=== PATIENT | female | born 1985 | race Two or more races ===

== ENCOUNTER 2024-07-15 10:14 | Outpatient (REF) | payer MEDICAID, SELFPAY ==
--- OUTSIDE RECORDS SUMMARY | 2024-07-15 11:17 | XMS_ITS | Encounter Summary ---
Author Organization [employer] Address [address] [facility] [place] [address] Care Team Providers Care Gas Pipe Layer Name Role Phone Claudia Antunez MD Primary Care Provider + Encounter Details Date Type Department Care Team (Latest Contact Info) Description 07/15/2024 Travel Social History Tobacco Use Types Packs/Day Years Used Date Smoking Tobacco: Never Smokeless Tobacco: Never Alcohol Use Standard Drinks/Week Comments Never 0 (1 standard drink = 0.6 oz pur e alcohol) Housing Stability Answer Date Recorded What is your housing situation today? I have concha hurley 07/15/[address] you li ve. Do you have problems with any of the following? None of the above 07/15/2024 Food Insecurity Answer Date Recorded Within the past 12 months, y ou worried that your food would run out before you got money to buy more: Never True 07/15/2024 Within the past 12 months,th e food you bought just didn't last and you didn't have enough money to get more: Never True Transportation Answer Date Recorded In the past 12 months, has l ack of transportation kept you from medical appts, meetings, work or from getting things needed for daily living? No 07/15/2024 Utilities Answer Date Recorded In the past 12 months, has t he [employer], gas, oil or water [employer] threatened to shut off services in your home? No 07/15/2024 Internet Access Answer Date Recorded Internet Access Q1 No 07/15/2024 Internet Access Q2 I do not want or need it 07/01 Comments Unknown Sex and Gender Information Value Date Recorded Sex Assigned at Female 11/14/2023 4:49 PM EDT Legal Sex Female 4:47 PM EDT Gender Identity Female 11/14/2023 4:49 PM EDT Sexual Orientation Don't know 07/14/2024 8: 49 AM EDT documented as of this encounter Plan of Treatment Upcoming Encounters Date Type Department Care Team (Late st Contact Info) Description 10/29/2024 9:00 AM EDT Office Visit [facility] [address] [place] [address] Claudia Anutnez MD [address] [place] [address] documented as of this encounter Visit Diagnoses Not on filedocumented in this encounter Care Teams Gas Pipe Layer Relationship Specialty Start Date End Date Claudia Antunez MD [address] [place] [id number] PCP - General Internal Medicine 07/15/24 documented as of this encounter
--- OUTSIDE RECORDS SUMMARY | 2024-07-15 11:17 | XMS_ITS | Clinical Summary ---
Author Organization [employer] Address [address] [place] [address] 7t [place] [address] Care Team Providers Care Core Drill Operator Name Role Phone Claudia Antunez MD Primary Care Provider + Allergies Active Allergy Reactions Criticality Noted Date Comments Metronidazole 01/27/2024 Medications SUMAtriptan (Imitrex) 100 MG tablet Take 1 tablet (100 mg) by mouth 1 (one) time if needed for migraine. 9 tablet 1 5 07/17/19 Active budesonide-form oterol (Symbicort) 160-4.5 MCG/ACT inhaler Inhale 2 puffs in the morning and at bedtime. Rinse mouth with water after use to reduce aftertaste and incidence of candidiasis. Do not swallow. 1 each 11 5 07/16/19 Active topiramate (Topamax) 25 MG tablet Take 1 tablet (25 mg) by mouth 2 times daily. 60 tablet 3 5 07/16/19 Active sertraline (Zoloft) 25 MG tablet Take 1 tablet (25 mg) by mouth Once per day. 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, not intractable (Primary Dx); Mild persistent asthma without complication; PTSD (post-traumatic stress disorder); PCOS (polycystic ovarian syndrome); Chronic bilateral low back pain with left-sided sciatica 07/15/2024 Travel 07/07/2024 Patient Outreach [facility] [address] [place] [address] Claudia Antunez MD Pre-visit Planning ((Unable to reach for PVP screening and or LVM due to diffilculty with phone connection.) from Last 3 Months Social History Tobacco Use Types Packs/Day Years Used Date Smoking Tobacco: Never Smokeless Tobacco: Never Tobacco Cessation:Counseling Given: Not Answered Alcohol Use Standard Drinks/Week Comments Never 0 [...] the past 12 months, has t he electric, gas, oil or water company threatened to shut off services in your [...] Don't know 07/14/2024 8: 49 AM EDT Last Filed Vital Signs Vital Sign Reading Time Taken Comments Blood Pressure 123/77 07/15/2024 9:05 AM EDT Pulse 73 07/15/2024 9:05 AM EDT Temperature 36.2 ??C (97.2 ??F) 07/15/2024 9:05 AM ED T Respiratory Rate 16 07/15/2024 9:05 AM EDT Oxygen Saturation 100% 07/15/2024 9:05 AM EDT Inhaled Oxygen Concentration - - Weight 75 kg (165 lb 4 oz) 07/15/2024 9:05 AM ED T Height 158 cm (5' 2.21 ) 07/15/2024 9:05 AM EDT Body Mass Index 30.03 07/15/2024 9:05 AM EDT Plan of Treatment Upcoming Encounters Date Type Department Care Team (Late st Contact Info) Description 10/29/2024 9:00 AM EDT Office Visit [facility] [address] [place] [address] Claudia Antunez MD [address] [place], [place] [phone] Health Maintenance Due Date Last Done Comments Depression Screening 1987 HIV Screening 1987 Lipid Panel 1987 Alcohol/Substance Use Screening 1999 Family Planning (PISQ) 06/06/2002 Hepatitis C Screening 06/06/2005 DTaP/Tdap/Td Vaccines (1 - Tdap) 06/06/2006 Hepatitis B Vaccines (1 of 3 - 19+ 3-dose series) 06/06/2006 Pneumococcal Vaccine: Pediat rics (0 to 5 Years) and At-Risk Patients (6 to 49) Years) (1 of 2 - PCV) 06/06/2006 Pap Smear 06/06/2008 Cervical Cancer Screening 06/06/2017 HPV/Cotest 06/06/2017 COVID-19 Vaccine ( - 2023-2 5 season) 2023 Influenza Vaccine (#1) 2023 SDOH Screening 07/15/2025 07/15/2024 Tobacco Screening 07/15/2025 07/15/2024 Zoster Vaccines (1 of 2) 06/06/2037 RSV Patients and Pa tients Aged 60 years or older (1 - 1-dose 75+ series) 06/06/2062 HIB Vaccines Aged Out No longer eligi ble based on patient's age to complete this topic HPV Vaccines Aged Out No longer eligi ble based on patient's age to complete this topic Hepatitis A Vaccines Aged Out No long er eligible based on patient's age to complete this topic IPV Vaccines Aged Out No longer eligi ble based on patient's age to complete this topic Meningococcal B Vaccine Aged Out No l onger eligible based on patient's age to complete this topic Meningococcal Vaccine Aged Out No wayne rocio eligible based on patient's age to complete this topic RSV under 20 months Aged Out No longe r eligible based on patient's age to complete this topic Rotavirus Vaccines Aged Out No longer eligible based on patient's age to complete this topic Insurance [facility] F[facility] Care Teams Core Drill Operator Relationship Specialty Start Date End Date Claudia Antunez MD [address] [place] [id number] PCP - General Internal Medicine 07/15/24
--- OUTSIDE RECORDS SUMMARY | 2024-07-15 11:17 | XMS_ITS | Clinical Summary ---
Author Organization [address] [place] [address] [place] [phone] Phone Care Team Providers Care Drain Technician Name Role Phone SheelaAmna TAJ Primary Care Provider [phone] Allergies Active Allergy Reactions Criticality Noted Date Comments Metronidazole 01/27/2024 Medications No known medications Active Problems Problem Noted Date Diagnosed Date Encounter for gynecological examination with abnormal finding 01/27/2024 Cervical cancer screening 01/27/2024 Female infertility 01/27/2024 Class 1 obesity due to exces s calories without serious comorbidity with body mass index (BMI) of 30.0 to 30.9 in adult 01/27/2024 Irregular menstrual bleeding 01/27/2024 Surgical History Surgery Date Site/Laterality Comments SECTION, LOW TRANSVERSE Medical History Medical History Date Comments Polycystic ovary syndrome Social History Tobacco Use Types Packs/Day Years Used Date Smoking Tobacco: Never Smokeless Tobacco: Never Tobacco Cessation:Counseling Given: No Alcohol Use Standard Drinks/Week Comments Not Currently 0 (1 standard drink = 0.6 oz pur e alcohol) Comments Unknown Sex and Gender Information Value Date Recorded Sex Assigned at Female 01/16/2024 10:00 AM EST Legal Sex Female 9:58 AM EST Gender Identity Female 01/16/2024 10:00 AM EST Sexual Orientation Straight 01/16/2024 10 :00 AM EST Obstetrics History Para Term AB IAB SAB Ectopic Multiple Livin g Live Births 1 1 1 1 1 Date Outcome GA Total Labor Labor/2nd/3rd Weight Sex Type Anes PTL Jennifer A1 A5 Name Clin 2016 Term F CS-LT ranv Living Last Filed Vital Signs Vital Sign Reading Time Taken Comments Blood Pressure 108/76 01/27/2024 7:09 AM EST Pulse - - Temperature - - Respiratory Rate - - Oxygen Saturation - - Inhaled Oxygen Concentration - - Weight 74.8 kg (165 lb) 01/27/2024 7:09 AM EST Height 157.5 cm (5' 2 ) 01/27/2024 7:09 AM EST Body Mass Index 30.18 01/27/2024 7:09 AM EST Plan of Treatment Health Maintenance Due Date Last Done Comments DTaP,Tdap,and Td Vaccines (1 - Tdap) 06/06/2006 Hepatitis B Vaccines (1 of 3 - 19+ 3-dose series) 06/06/2006 COVID-19 Vaccine ( - 2023-2 5 season) 2023 Cholesterol Screening (Lipid Panel) 01/16/2024 Depression Screening 01/16/2024 HIV Screening 01/16/2024 Hepatitis C Screening 01/16/2024 Social Influencers of Health Screening 01/16/2024 Influenza Vaccine (Season Ended) 2024 Cervical Cancer Screening: HPV 01/26/2029 01/27/2024 HIB Vaccines Aged Out No longer eligi [...] on patient's age to complete this topic MMR Vaccines Aged Out No longer eligi ble based on patient's age to complete this topic Meningococcal ACWY Vaccine Aged Out N o longer eligible based on patient's age to complete this topic Meningococcal B Vaccine Aged Out No l onger eligible based on patient's age to complete this topic Pneumococcal Vaccine: Pediat rics (0 to 5 Years) and At-Risk Patients (6 to 64 Years) Aged Out No longer eligi ble based on patient's age to complete this topic RSV Immunization Patients Un ghazal 20 months Aged Out No longer eligible b ased on patient's age to complete this topic Varicella Vaccines Aged Out No longer eligible based on patient's age to complete this topic Procedures Procedure Name Priority Date/Time Associated Diagnosis Comments HPV HIGH RISK PCR Routine 01/27/2024 8:1 1 AM EST Cervical cancer screening from Last 3 Months or Most Recently Relevant to Health Maintenance Results * HPV high risk molecular study (01/27/2024 8:11 AM EST) HPV Negative Negative LAB MOLECULAR DIAGNOSTICS METHOD 02/04/2024 4:38 AM EST [facility] Brushing/Spatula Cervix uteri structure / Unknown 01/27/2024 8:11 AM EST 02/03/2024 10:10 AM EST Amna Coker NP LAB MOLECULAR DIAGNOSTICS ORDERA BLES Final Result [facility] [address] [place] [address], [place] [phone] from Last 3 Months or Most Recently Relevant to Health Maintenance [place] [address] [place] [address] Care Teams Drain Technician Relationship Specialty Start Date End Date Amna Coker NP David Cueto [facility] [address] [place] [address] PCP - General Obstetrics and Gynecology 03/02/24
--- OUTSIDE RECORDS SUMMARY | 2024-07-15 11:17 | XMS_ITS | Clinical Summary ---
Author Organization [facility] Address [address] [place] [address] Care Team Providers Care Rolled Ham Lacer Name Role Phone Yesica Allison PA-C Primary Care Provider Source Comments PLEASE NOTE, if this patient is a minor, it may be UNLAWFUL to discuss sensitive information that is contained in these records (such as FAMILY PLANNING, MENTAL HEALTH or SUBSTANCE ABUSE) with the minor patient's parent or other person without the patient's specific authorization.[facility] Social History Tobacco Use Types Packs/Day Years Used Date Smoking Tobacco: Never Assessed Social Connections Answer Date Recorded Connectedness 0 11/14/2023 Financial Resource Strain Answer Date R ecorded Financial Resource Strain 0 2023 Stress Answer Date Recorded Stress 0 11/14/2023 Physical Activity Answer Date Recorded Physical Activity 0 11/14/2023 Food Insecurity Answer Date Recorded Food 0 11/28/2023 Transportation Needs Answer Date Record ed Transportation 0 11/14/2023 Housing Stability Answer Date Recorded Housing 0 11/14/2023 Safety and Environment Answer Date Indio rded Safety 0 11/14/2023 Utilities Answer Date Recorded Utilities 0 11/14/2023 Employment Answer Date Recorded Stress 0 11/14/2023 Comments Unknown Sex and Gender Information Value Date Recorded Sex Assigned at Female 11/14/2023 9:08 AM PDT Legal Sex Female 9:07 AM PDT Gender Identity Female 11/14/2023 9:08 AM PDT Sexual Orientation Straight 11/14/2023 9: 08 AM PDT Plan of Treatment Upcoming Encounters Date Type Department Care Team (Late st Contact Info) Description 07/29/2024 9:20 AM EDT Office Visit [facility] [address] [place] [phone] Linette Mcfarlane PA [address] [place], [place] [phone] 09/06/2024 9:00 AM EDT Office Visit [facility] [address] [place] [phone] EvelyneRuth Ann smith [address] [place] [address] Health Maintenance Due Date Last Done Comments Anxiety Screening 1987 Diabetes Screening 1987 HPV Screening 1987 Hepatitis C Screening 1987 Pap + HPV 1987 Tobacco Screening 1987 HIV Screening 06/06/2002 Relationship Safety Screening/Counseling 06/06/2002 Hypertension Screening (#1) 06/06/2005 Imm-DTaP/Tdap/Td (1 - Tdap) 06/06/2006 Imm-Hepatitis B (1 of 3 - 19+ 3-dose series) 7 Cervical Cancer Screening 06/06/2008 Pap Smear 06/06/2008 [id number] () 11/02/2023 Imm-Influenza (#1) 2023 Alcohol and Drug Screen 03/03/2024 Depression Annual Screen 03/03/2024 Cervical Ablation/Cold-Knife Conization Discontinued Cervical Cryotherapy Discontinued Colposcopy Discontinued Endometrial Biopsy Discontinued Excision/Leep Discontinued HPV Genotyping Discontinued Vaginal Pap Discontinued Vulvoscopy Discontinued Insurance [place] MEDICAID Care Teams Rolled Ham Lacer Relationship Specialty Start Date End Date Yesica Allison PA-C [address] [place] [address] PCP - General Primary Care 11/14/23
--- OUTSIDE RECORDS SUMMARY | 2024-07-15 11:17 | XMS_ITS | Encounter Summary ---
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, not intractable Procedures MR Brain w/o Contrast Claudia Antunez MD [address] [place] [address] Phone: tel: fax: [address] Phone: tel: fax: Referral ID Status Reason Start Date Expiration Date V isits Requested Visits Authorized [id number] Authorized 07/15/2024 07/15/2025 1 1 Reason for Visit * Reason Comments New patient Encounter Details Date Type Department Care Team (Late st Contact Info) Description 07/15/2024 9:15 AM EDT Office Visit [facility] [address] [place] [phone] Claudia Antunez MD [address] [place] [phone] 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, not intractable (Primary Dx); Mild persistent asthma without complication; PTSD (post-traumatic stress disorder); PCOS (polycystic ovarian syndrome); Chronic bilateral low back pain with left-sided sciatica Social History Tobacco Use Types Packs/Day Years [...] AM EDT documented as of this encounter Last Filed Vital Signs Vital Sign Reading [...] Mass Index 30.03 07/15/2024 9:05 AM EDT documented in this encounter Plan of Treatment Upcoming Encounters Date Type Department Care Team (Late st Contact Info) Description 10/29/2024 9:00 AM EDT Office Visit [facility] [address] [place] [address] Claudia Antunez MD [address] [place], [place] [phone] Scheduled Orders Name Type Priority Associated Diagnoses Orde r Schedule Lipid Panel with Reflex to Direct LDL Lab Routine PCOS (polycystic ovarian syndrome) Expected: 07/15/2024 (Approximate), Expires: 07/15/2025 Syphilis Screen Lab Routine 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, not intractable Expected: 07/15/2024 (Approximate), Expires: 07/15/2025 TSH with Reflex to Free T4 Lab Routine 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, not intractable Expected: 07/15/2024 (Approximate), Expires: 07/15/2025 Vitamin D, 25-Hydroxy, Total, Immunoassay Lab Routine PCOS (polycystic ovarian syndrome) Expected: 07/15/2024 (Approximate), Expires: 07/15/2025 Hepatitis Panel, General Lab Routine 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, not intractable PCOS (polycystic ovarian syndrome) Expected: 07/15/2024 (Approximate), Expires: 07/15/2025 CBC auto differential Lab Routine 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, not intractable Expected: 07/15/2024 (Approximate), Expires: 07/15/2025 Comprehensive Metabolic Panel Lab Routine 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, not intractable Expected: 07/15/2024 (Approximate), Expires: 07/15/2025 MR Brain w/o Contrast Imaging Routine 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, not intractable Expected: 07/15/2024, Expires: 07/15/2025 documented as of this encounter Visit Diagnoses Diagnosis 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
[2024-07-15 11:44] LABS: MANUAL DIFF FLAG NO
[2024-07-15 11:46] LABS: Basophils Percent Auto 0.4 % (0-2); Eosinophils Absolute Auto 0.1 X10*3/uL (0.0-0.4); Eosinophils Percent Auto 0.6 % (0-4); Hematocrit 39.2 % (37.0-47.0); Hemoglobin 12.9 g/dl (12.0-16.0); Imm Gran Abs Auto 0.04 X10*3/uL (0.00-0.03); Imm Gran Pct Auto 0.4 % (0.0-0.4); Lymphocytes Absolute Auto 2.6 X10*3/uL (1.2-4.9); Lymphocytes Percent Auto 27.8 % (20-40); Mean Corpuscular HGB Conc 32.9 g/dl (31.0-35.0); Mean Platelet Volume 11.9 fL (9.4-12.3); Monocytes Absolute Auto 0.6 X10*3/uL (0.1-1.2); Monocytes Percent Auto 6.6 % (2-11); Neutrophils Percent Auto 64.2 % (45-73); Platelet Count 202 X10*3/uL (160-400); Red Blood Count 4.61 X10*6/uL (4.20-5.50); Red Cell Distribution Width 13.1 % (11.0-16.0); White Blood Count 9.3 X10*3/uL (4.8-10.8)
[2024-07-15 12:30] LABS: Alanine Aminotransferase 12 U/L (0-31); Albumin Level 4.1 g/dL (3.5-5.0); Alkaline Phosphatase 84 U/L (39-117); Anion Gap 12 (12-20); Aspartate Amino Transferase 21 U/L (5-31); Bilirubin Total 0.5 mg/dL (0.0-1.0); Blood Urea Nitrogen 12 mg/dL (9-16); Calcium 9.1 mg/dL (8.4-10.2); Carbon Dioxide 25 mmol/L (22-29); Chloride 108 mmol/L (96-108); Cholesterol 188 mg/dL (<200); Estimated Glomerular Filt Rate > 60; Glucose Random 94 mg/dL (60-115); HDL Cholesterol 48 mg/dL (>40); LDL Cholesterol Calculated 121 mg/dL (<100); Potassium 4.2 mmol/L (3.3-5.1); Sodium 141 mmol/L (135-145); Syphilis Screen Nonreactive (Nonreactive); Total Protein 7.6 g/dL (6.5-8.0); Triglycerides 97 mg/dL (<150)
[2024-07-15 12:35] LABS: TSH reflex Free T4 1.37 uIU/mL (0.32-4.0); Vitamin D 25-OH Total 23.6 ng/mL (>30)
[2024-07-15 12:37] LABS: HBS Num1 0.51 mIU/mL (0-7.99); HBc Num1 0.16 S/CO (0.00-0.79); HBsAGNum1 0.47 S/CO (0.00-0.99); Hepatitis A Antibody IgM 0.23 Index (0-0.79); Hepatitis B Core Antibody Nonreactive (Nonreactive); Hepatitis B Surface Antigen Negative (Negative); ~HepC Num1 0.12 S/CO (0.00-0.79); ~Hepatitis A Antibody IgM Nonreactive (Nonreactive); ~Hepatitis B Surface Antibody NONREACTIVE (Nonreactive); ~Hepatitis C Antibody Nonreactive (Nonreactive)
[2024-07-15 13:05] LABS: Reflex LDLD? No
[2024-07-16 15:31] LABS: HCG Quantitative < 2 mIU/mL
== END 2024-07-15 10:15 | disposition home or self-care (01) ==
LOC: HO.HHCL 10:14
PROVIDERS: Visit Provider Internal Medicine
DX: G43.509 Persistent migraine aura without cerebral infarction, not intractable, without status migrainosus (principal); E28.2 Polycystic ovarian syndrome
CPT/HCPCS: 36415; 80053; 80061; 82306; 84443; 84702; 85025; 86704; 86706; 86709; 86780; 86803; 87340

== ENCOUNTER 2024-07-25 10:40 | Outpatient (REF) | payer MEDICAID, OTHER, SELFPAY ==
--- NOTE | ~2024-07-25 | MR_ITS ---
CLINICAL HISTORY: recurrent headaches with neurological deficits MR of the brain without contrast Comparison: None Findings: No acute infarction, hemorrhage, mass-effect or herniation. No hydrocephalus. Signal intensity is within normal limits for patient's age. No extra-axial fluid collection or mass. In the sella there is a lesion in the midline measuring 6 x 6 mm which is hyperintense on T1 and T2 weighted images, FLAIR and does not demonstrate increased signal on the DWI images (series 6, 9, 7 in 12, image 11 ). Intact flow voids. Normal orbits. Mild mucosal thickening with fluid in the left maxillary sinus. Mucosal thickening and left anterior ethmoid air cells. Otherwise clear paranasal sinuses and mastoid air cells. Unremarkable osseous structures. 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 Cystic pituitary adenoma is considered less likely. A sella mass protocol study can be performed for further characterization. No posttraumatic findings. The brain parenchyma is normal in signal. Sinusitis. This document has been electronically signed by: Nicole Michael MD on 07/27/2024 13:38:27
--- OUTSIDE RECORDS SUMMARY | 2024-07-25 10:46 | XMS_ITS | Encounter Summary ---
Author Organization [employer] Address [address] [facility] [address]t [place] [address] Care Team Providers Care Cooky Machine Operator Name Role Phone Claudia Antunez MD Primary Care Provider + Reason for Visit * Reason Onset Date Comments Results 07/22/2024 Encounter Details Date Type Department Care Team ([facility] st Contact Info) Description 07/22/2024 Results Follow-Up [facility] [address] [place], [place] [phone] Claudia Antunez MD [address] [place] [address] Lipid Panel with Reflex to Direct LDL, Syphilis Screen, TSH with Reflex to Free T4, Additional followed-up results: 5 Social History Tobacco Use Types Packs/Day Years Used Date Smoking Tobacco: Never Smokeless Tobacco: Never Alcohol Use Standard Drinks/Week Comments Never 0 (1 standard drink = 0.6 oz pur e alcohol) Depression Answer Date Recorded Patient Health Questionnaire-9 Score 14 07/15/2024 Patient Health Questionnaire-9 Score 14 07/15/2024 Last PHQ-9: Questionnaire Data Not on file 0 07/15/2024 Housing Stability Answer Date Recorded What is [...] off services in your home? No 07/15/2024 Depression Answer Date Recorded Patient Health Questionnaire-2 Score 4 07/15/2024 Internet Access Answer Date Recorded Internet [...] AM EDT documented as of this encounter Miscellaneous Notes * Telephone Encounter - Elizabeth Owusu RN - 07/23/2024 10:46 AM EDT TC placed to patient [phone] via [employer] ([employer] #[id number]) in regards to below message. Patient verbalized understanding and reports she will p/u vitamin D supplement and work on dietary changes. Patient questioning why she was prescribed an anticonvulsant if she does not have seizures. Patient advised medication can also be used for migraines it is not only for patients with seizures.Patient verbalized understanding. Patient reports she spoke to the provider in regards to medication for gastric reflux however provider stated she would like to see the patients bloodwork results before prescribing medication for gastric reflux. RN informed patient, RN would send message to PCP nikki. Please advise if patient was to be prescribed medication for gastric reflux. Thank you! ----- Message from Claudia Antunez MD sent at 07/22/2024 4:22 PM EDT ----- Labs on 07/15/2024 show minimally elevated LDL (bad cholesterol and otherwise cholesterol is within normal limits, her vitamin D is a little low and the rest of exams are within normal limits. Please call patient and discussed with her regarding increase exercise and increase consumption of fruit, vegetables, fish and high fiber foods. Tell her that she should decrease consumption of highly saturated fats or trans fats. Also tell her to take vitamin D x 3 months and increase outdoor exercise daily for at least 15 minutes, I will follow-up with her at next appointment and discuss the rest of the labs. There is no need for medication for cholesterol at this time. ----- Message ----- From: Interface, Lab Results In Sent: 07/15/2024 11:48 AM EDT To: Claudia Antunez MD documented in this encounter Plan of Treatment Upcoming Encounters Date Type Department Care Team (Late st Contact Info) Description 10/29/2024 9:00 AM EDT Office Visit [facility] [address] [place] [phone] Claudia Antunez MD [address] [place] [phone] documented as of this encounter Visit Diagnoses Not on filedocumented in this encounter Additional Health Concerns Assessment Noted Time PHQ-9 Depression Total Score: 14 025 12:15 PM EDT documented as of this encounter Care Teams Cooky Machine Operator Relationship Specialty Start Date End Date Claudia Antunez MD [address] [place] [phone] PCP - General Internal Medicine 07/15/24 documented as of this encounter
== END 2024-07-25 10:41 | disposition home or self-care (01) ==
LOC: HO.MRI 10:40
PROVIDERS: PCP Internal Medicine; Visit Provider Internal Medicine
DX: G43.509 Persistent migraine aura without cerebral infarction, not intractable, without status migrainosus (principal)
CPT/HCPCS: 70551

== ENCOUNTER → 2024-07-25 10:47 | Outpatient (BNV) | payer SELFPAY | PROVIDERS: PCP Internal Medicine; Visit Provider Radiology Diagnostic Radiology | DX: J01.90 Acute sinusitis, unspecified (principal); Q18.0 Sinus, fistula and cyst of branchial cleft | CPT/HCPCS: 70551 ==

== ENCOUNTER 2024-10-27 08:06 | Outpatient (REF) | payer MEDICAID, OTHER, SELFPAY ==
--- NOTE | ~2024-10-27 | XR_ITS ---
EXAMINATION: XR LUMBAR SPINE 4 OR MORE VIEWS HISTORY: LBP sciatica COMPARISON: There are no prior studies for comparison. FINDINGS: AP, lateral, bilateral oblique, and coned down views of the lumbar spine are submitted. Osseous mineralization is normal. Five nonrib-bearing lumbar vertebral bodies are identified, maintaining normal height and alignment without evidence of fracture or spondylolisthesis. The intervertebral disc spaces are preserved. The posterior elements are intact. There is no spondylolysis. The visualized paraspinal soft tissues are unremarkable. XR/XR lumbar spine 4V min IMPRESSION: Unremarkable examination of the lumbar spine. Electronically signed by: Rie Austin MD 10/27/2024 09:44 AM EDT
--- OUTSIDE RECORDS SUMMARY | 2024-10-27 08:11 | XMS_ITS | Encounter Summary ---
Author Organization [employer] Address [address] [facility] [address] [place] [address] Care Team Providers Care Chemistry Intern Name Role Phone Claudia Antunez MD Primary Care Provider + Encounter Details Date Type Department Care Team ([facility] st Contact Info) Description 08/23/2024 Telephone [facility] [address], [place] [phone] Shant Teresa MD [address] [place], [place] [phone] Social History Tobacco Use Types Packs/Day Years Used Date Smoking Tobacco: Never Assessed Depression Answer Date Recorded Patient Health Questionnaire-9 Score 18 08/03/2024 Patient Health Questionnaire-9 Score 18 08/03/2024 Last PHQ-9: Questionnaire Data Not on file 0 08/03/2024 Housing Stability Answer Date Recorded What is your housing situation today? I have concha hurley 08/24/[address] you li ve. Do you have problems with any of the following? None of the above 08/24/2024 Food Insecurity Answer Date Recorded Within the past 12 months, y ou worried that your food would run out before you got money to buy more: Never True 08/24/2024 Within the past 12 months,th e food you bought just didn't last and you didn't have enough money to get more: Never True Transportation Answer Date Recorded In the past 12 months, has l ack of transportation kept you from medical appts, meetings, work or from getting things needed for daily living? No 08/24/2024 Utilities Answer Date Recorded In the past 12 months, has t he electric, gas, oil or water company threatened to shut off services in your home? No 08/24/2024 Depression Answer Date Recorded Patient Health Questionnaire-2 Score 6 08/03/2024 Internet Access Answer Date Recorded Internet Access Q1 No 08/24/2024 Internet Access Q2 I do not want or need it 08/02 Comments Unknown Sex and Gender Information Value Date Recorded Sex Assigned at Female 08/23/2024 9:26 AM EDT Legal Sex Female 11:54 AM EDT Gender Identity Female 08/23/2024 9:26 AM EDT Sexual Orientation Straight 08/23/2024 9: 26 AM EDT documented as of this encounter Miscellaneous Notes * Telephone Encounter - Haleigh Avitia - 08/23/2024 12:56 PM EDT TC from pt seen today at walk-in clinic at 10:40 AM by doctor Name. Pt is requesting a letter for work stating the diagnosis. She would like the letter mailed if possible. Pt also requested a call back to find out the fastest way to receive the letter before tomorrow. Contact pt at [phone] Need emergency department manager documented in this encounter Plan of Treatment Not on file documented as of this encounter Visit Diagnoses Not on filedocumented in this encounter Additional Health Concerns Assessment Noted Time PHQ-9 Depression Total Score: 18 025 9:00 AM EDT documented as of this encounter Care Teams Chemistry Intern Relationship Specialty Start Date End Date Claudia Antunez MD [address] [place] [address] PCP - General Internal Medicine 07/15/24 documented as of this encounter
--- OUTSIDE RECORDS SUMMARY | 2024-10-27 08:11 | XMS_ITS | Clinical Summary ---
Author Organization [address] [place] [address] [place] [phone] Phone Care Team Providers Care Computed Tomography Technologist Name Role Phone SheelaAmna TAJ Primary Care Provider [phone] Allergies Active Allergy Reactions Criticality Noted Date [...] season) 2023 Cholesterol Screening (Lipid Panel) 01/16/2024 HIV Screening 01/16/2024 Hepatitis C Screening 01/16/2024 Social Influencers of Health Screening 01/16/2024 Depression Screening 03/03/2024 Influenza Vaccine (#1) 2024 Cervical Cancer Screening: HPV 01/26/2029 01/27/2024 [...] 5 Years) and At-Risk Patients (6 to 49 Years) Aged Out No longer eligi ble [...] MOLECULAR DIAGNOSTICS METHOD 02/04/2024 4:38 AM EST [facility] Brushing/Spatula Cervix uteri structure / Unknown 01/27/2024 8:11 AM EST 02/03/2024 10:10 AM EST Amna Cokre NP LAB MOLECULAR DIAGNOSTICS ORDERA BLES Final Result [facility] [address] [place] [address], [place] [phone] from Last 3 Months or Most Recently Relevant to Health Maintenance Insurance [address] [address] Care Teams Computed Tomography Technologist Relationship Specialty Start Date End Date Amna Coker NP David Cueto [facility] [address] [place] [address] PCP - General Obstetrics and Gynecology 03/02/24
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
--- OUTSIDE RECORDS SUMMARY | 2024-10-27 08:11 | XMS_ITS | Clinical Summary ---
Author Organization [facility] Address [address] [place] [address] Care Team Providers Care Distribution Engineer Name Role Phone Yesica Allison PA-C Primary Care Provider [phone] Source Comments PLEASE NOTE, if this patient is a minor, it may be UNLAWFUL to discuss sensitive information that is contained in these records (such as FAMILY PLANNING, MENTAL HEALTH or SUBSTANCE ABUSE) with the minor patient's parent or other person without the patient's specific authorization.[facility] Medications No known medications Active Problems No known active problems Encounters Date Type Department Care Team Description 09/06/2024 9:00 AM EDT Office Visit [facility] [address] [place] [phone] Ruth Ann Stubbs from Last 3 Months Social History Tobacco [...] Care Team (Late st Contact Info) Description 11/03/2024 3:40 PM EDT Office Visit [facility] [address] [place] [phone] Ruth Ann Stubbs [address] [place] [address] Health Maintenance Due Date Last Done Comments Anxiety Screening 1987 Dental Prophy 1987 HPV Screening 1987 Hepatitis C Screening 1987 Pap + HPV 1987 Tobacco Screening 1987 HIV Screening 06/06/2002 Relationship Safety Screening/Counseling 06/06/2002 Hypertension Screening (#1) 06/06/2005 Imm-DTaP/Tdap/Td (1 - Tdap) 06/06/2006 Imm-Hepatitis B (1 of 3 - 19+ 3-dose series) Cervical Cancer Screening 06/06/2008 Pap Smear 06/06/2008 [id number] () 11/02/2023 Alcohol and Drug Screen 03/03/2024 Depression Annual Screen 03/03/2024 Imm-Influenza (#1) 2024 Dental BW 09/08/2025 09/06/2024 Dental Examination 09/08/2025 09/06/2024 Dental Perio Charting 09/08/2025 09/06/2024 Diabetes Screening 07/16/2027 07/15/2024 Dental FMX/Pano 09/08/2029 09/06/2024 Cervical Ablation/Cold-Knife Conization Discontinued Cervical Cryotherapy Discontinued Colposcopy Discontinued Endometrial Biopsy Discontinued Excision/Leep Discontinued HPV Genotyping Discontinued Vaginal Pap Discontinued Vulvoscopy Discontinued Procedures Procedure Name Priority Date/Time Associated Diagnosis Comments INTRAORAL - COMP SERIES OF RADIOGRAPHIC IMAGES Routine 09/06/2024 9:00 AM EDT Caries of enamel (incipient) COMP ORAL EVALUATION - NEW/ESTABLISHED PATIENT Routine 09/06/2024 9:00 AM EDT Caries of enamel (incipient) CARIES RISK ASSESSMENT & DOC FINDING HIGH RISK Routine 09/06/2024 9:00 AM EDT Caries of enamel (incipient) NUTRITIONAL COUNSELING CONTROL OF DENTAL DISEASE Routine 09/06/2024 9:00 AM EDT Caries of enamel (incipient) ORAL HYGIENE INSTRUCTIONS Routine 09/06/2024 9:00 AM EDT Caries of enamel (incipient) ORAL CANCER SCREENING Routine 09/06/2024 9:00 AM EDT Caries of enamel (incipient) CASE PRESENTATION SUBS DTL & EXTENSIVE TX PLN Routine 09/06/2024 9:00 AM EDT Caries of enamel (incipient) DENTAL CASE MANAGEMENT - MOTIVATIONAL INTV Routine 09/06/2024 9:00 AM EDT Caries of enamel (incipient) 20 O COMPOSITE - WISDOM (NON BILLABLE) Routine 09/06/2024 12:00 AM EDT 21 O COMPOSITE - WISDOM (NON BILLABLE) Routine 09/06/2024 12:00 AM EDT 19 O COMPOSITE - WISDOM (NON BILLABLE) Routine 09/06/2024 12:00 AM EDT 18 O COMPOSITE - WISDOM (NON BILLABLE) Routine 09/06/2024 12:00 AM EDT 15 O COMPOSITE - WISDOM (NON BILLABLE) Routine 09/06/2024 12:00 AM EDT 31 O COMPOSITE - WISDOM (NON BILLABLE) Routine 09/06/2024 12:00 AM EDT 30 O COMPOSITE - WISDOM (NON BILLABLE) Routine 09/06/2024 12:00 AM EDT 29 O COMPOSITE - WISDOM (NON BILLABLE) Routine 09/06/2024 12:00 AM EDT 28 O COMPOSITE - WISDOM (NON BILLABLE) Routine 09/06/2024 12:00 AM EDT 5 O COMPOSITE - WISDOM (NON BILLABLE) Routine 09/06/2024 12:00 AM EDT 4 O COMPOSITE - WISDOM (NON BILLABLE) Routine 09/06/2024 12:00 AM EDT 3 O COMPOSITE - WISDOM (NON BILLABLE) Routine 09/06/2024 12:00 AM EDT 2 O COMPOSITE - WISDOM (NON BILLABLE) Routine 09/06/2024 12:00 AM EDT 7 PONTIC - PORCELAIN/CERAMIC Routine 09/06/2024 12:00 AM EDT 7 IMPLANT - WISDOM (NON BILLABLE) Routine 09/06/2024 12:00 AM EDT from Last 3 Months Insurance [place] [facility] Care Teams Distribution Engineer Relationship Specialty Start Date End Date Yesica Allison PA-C [address] [place] [phone] PCP - General Primary Care 11/14/23
== END 2024-10-27 08:07 | disposition home or self-care (01) ==
LOC: HO.HHCL 08:06
PROVIDERS: PCP Internal Medicine; Visit Provider Internal Medicine
DX: M54.42 Lumbago with sciatica, left side (principal); G89.29 Other chronic pain
CPT/HCPCS: 72110

== ENCOUNTER → 2024-10-27 08:17 | Outpatient (BNV) | payer MEDICAID, SELFPAY | PROVIDERS: PCP Internal Medicine; Visit Provider Radiology Diagnostic Radiology | DX: M54.40 Lumbago with sciatica, unspecified side (principal) | CPT/HCPCS: 72110 ==

== ENCOUNTER 2024-11-09 14:33 | Outpatient (REF) | payer MEDICAID, OTHER, SELFPAY ==
--- OUTSIDE RECORDS SUMMARY | 2024-11-09 17:06 | XMS_ITS | Clinical Summary ---
Author Organization [employer] Address [address] [facility] [address] [place] [address] Care Team Providers Care Grit Blaster Name Role Phone Claudia Antunez MD Primary [...] QHS 90 tablet 3 10/21/19 25 Active Vit-Fe Fumarate-FA (PrePLUS) 27-1 MG tabletIndicati ons: test positive Take 1 tablet by mouth daily 90 tablet 3 11/10/19 25 Active topiramate (Topamax) 25 MG tablet Take 1 tablet (25 mg) by mouth 2 times daily. 60 tablet 3 07/16/19 25 2024 Discontinued(R eorder (will not trigger notification to Pharmacy)) cyclobenzaprin e (Flexeril) 10 MG tablet Take 1 tablet (10 mg) by mouth at bedtime for 10 days. 10 tablet 07/16/192024 Discontinued(T herapy completed) ergocalciferol (Vitamin D2) 1.25 MG (68924 UT) capsule Take 1 capsule (1.25 mg) by mouth 1 (one) time per week. 12 capsule 07/23/192024 famotidine (Pepcid) 20 MG tablet Take 1 tablet (20 mg) by mouth 2 times daily. 60 tablet 07/30/192024 Discontinued(T herapy completed) topiramate (Topamax) 25 MG tablet Take 1 tablet by mouth 2 times daily. 07/16/192024 Discontinued(D uplicate order (will not trigger notification to Pharmacy)) SUMAtriptan (Imitrex) 100 MG tablet TAKE 1 TABLET BY MOUTH ONCE NEEDED FOR MIGRAINE 07/16/192024 Discontinued(D uplicate order (will not trigger notification to Pharmacy)) cyclobenzaprin e (Flexeril) 10 MG tablet TAKE 1 TABLET BY MOUTH AT BEDTIME FOR 10 DAYS 07/16/192024 Discontinued(S golden effects) famotidine (Pepcid) 20 MG tablet Take 1 tablet by mouth 2 times daily. 07/30/19 25 2024 Discontinued(T herapy completed) sertraline (Zoloft) 25 MG tablet Take 1 tablet by mouth Once per day. 07/16/192024 Discontinued(D uplicate order (will not trigger [...] , I will probably refer her to [facility] after reviewing the labs Chronic bilateral low [...] organization. Date Type Department Care Team Description 11/08/2024 Refill [facility] [address] [place] [address] Claudia Antunez MD test positive 10/20/2024 3:15 PM EDT Office Visit [facility] [address] [place] [address] Claudia Antunez MD PCOS (polycystic ovarian syndrome) [...] both eyes 10/20/2024 Travel 10/13/2024 Patient Outreach [facility] [address] [place], [place] [phone] Claudia Antunez MD Pre-visit Planning (SDOH was already completed) 08/23/2024 10:40 AM EDT Office Visit [facility] [address] [place], [place] [phone] Rj, MD Valedz Cough in adult patient (Primary Dx); Myalgia; Sore throat; Fever and chills 08/23/2024 Telephone [facility] [address] [place], [place] [phone] Shant Teresa MD 08/10/2024 Telephone [facility] [address] [place], [place] [phone] Claudia Antunez MD Appointment Request from Last [...] COVID-19 Vaccine ( - 2023-2 5 season) 2024 Influenza Vaccine (#1) 2024 Depression Monitoring 03/04/2025 [...] Procedure Name Priority Date/Time Associated Diagnosis Comments HCG, TOTAL, QN Routine 11/09/2024 2:37 PM EDT test positive XR LUMBAR SPINE COMPLETE 4+ VIEWS Routine 10/27/2024 8:17 AM EDT Chronic bilateral low back pain with left-sided sciatica POCT , URINE Routine 10/20/2024 4:00 PM [...] :14 AM EDT Cough in adult patient HEPATITIS PANEL, GENERAL Routine 07/15/2024 10:18 AM EDT 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, not intractable PCOS (polycystic ovarian syndrome) LIPID PANEL WITH REFLEX TO DIRECT LDL Routine 07/15/2024 10:18 AM EDT PCOS (polycystic ovarian syndrome) from Last 3 Months or Most Recently Relevant to Health Maintenance Results * hCG, Total, Quantitative (11/09/2024 2:37 PM EDT) HCG Quantitative 857 mIU/mL [facility] Comment:Weeks post LMP Appro ximate hCG(Last Menstrual Period) Range (mIU/ml)3 - 4 weeks 9 - 1304 - 5 weeks 75 - 2,6005 - 6 weeks 850 - 20,8006 - 7 weeks 4000 - 100,2007 - 12 weeks 11,500 - 289,32893 - 16 weeks 18,300 - 137,37764 - 29 weeks (2nd trimester) 1,400 - 53,56971 - 41 weeks (3rd trimester) 940 - 60,000The Pfeiffer B- hCG assay is used for the early detection ofpregnancy; it cannot be used to diagnose any conditionunrelated to . If a B-hCG level is not supportedby the clinical evidence, results should be confirmed by analternative method (qualitative urine hCG, for example). Blood Venous blood specimen / Unknown 11/09/2024 2:37 PM EDT 11/09/2024 4:12 PM EDT us Claudia Antunez MD LAB BLOOD ORDERABLES Fin al Result [facility] [address] [place] [phone] * XR Lumbar Spine Complete 4+ Views (10/27/2024 8:17 AM EDT) Anatomical Region Laterality Modality Spine, L-spine Radiographic Dalila ging 10/27/2024 8:17 AM EDT Narrative 10/27/2024 9:47 AM EDT [address] [address] XRay Report Signed Patient: Carol Paiz MR#: [id number] : 1985 Acct:[id number] Age/Sex: 39 / F ADM Date: 10/27/24 Loc: [facility] Attending Dr: Claudia Antunez MD Ordering Physician: Claudia Antunez MD Date of Service: 10/27/24 Procedure(s): XR lumbar spine 4V min Accession Number(s): [id number] cc: Claudia Antunez MD EXAMINATION: XR LUMBAR SPINE 4 OR MORE VIEWS HISTORY: LBP sciatica COMPARISON: There are no prior studies for comparison. FINDINGS: AP, lateral, bilateral oblique, and coned down views of the lumbar spine are submitted. Osseous mineralization is normal. Five nonrib-bearing lumbar vertebral bodies are identified, maintaining normal height and alignment without evidence of fracture or spondylolisthesis. The intervertebral disc spaces are preserved. The posterior elements are intact. There is no spondylolysis. The visualized paraspinal soft tissues are unremarkable. XR/XR lumbar spine 4V min IMPRESSION: Unremarkable examination of the lumbar spine. Electronically signed by: Rei Austin MD 10/27/2024 09:44 AM EDT Dictated By: Rei Austin MD Signed By: <Electronically signed by Rei Austin MD in OV> 10/27/24 0944 DD/ 6 TD/TT: 10/27/24819 Double Surface Operator: Procedure Note Donotuseinterpreter, Image - 10/27/[address] [address] XRay Report Signed Patient: Carol PaizMR#: [id number] : 1985Acct:[id number] Age/Sex: 39 / FADM Date: 10/27/24 Loc: HO.[facility] Attending Dr: Claudia Antunez MD Ordering Physician: Claudia Antunez MD Date of Service: 10/27/24 Procedure(s): XR lumbar spine 4V min Accession Number(s): [id number] cc: Claudia Antunez MD EXAMINATION: XR LUMBAR SPINE 4 OR MORE VIEWS HISTORY: LBP sciatica COMPARISON: There are no prior studies for comparison. FINDINGS: AP, lateral, bilateral oblique, and coned down views of the lumbar spine are submitted. Osseous mineralization is normal. Five nonrib-bearing lumbar vertebral bodies are identified, maintaining normal height and alignment without evidence of fracture or spondylolisthesis. The intervertebral disc spaces are preserved. The posterior elements are intact. There is no spondylolysis. The visualized paraspinal soft tissues are unremarkable. XR/XR lumbar spine 4V min IMPRESSION: Unremarkable examination of the lumbar spine. Electronically signed by: Rei Austin MD 10/27/2024 09:44 AM EDT Dictated By: Rei Austin MD Signed By: <Electronically signed by Rei Austin MD in OV> 10/27/24 0944 DD/ 0817 TD/TT: 10/27/24 0820 Double Surface Operator: Claudia Antunez MD IMG XR PROCEDURES Edited Result - Final * POCT Urine (10/20/2024 4:00 PM EDT) Preg Test, Ur Negative Negative, Indeterminate, None Detected, Invalid, Specimen unsatisfactory for evaluation, Weakly Positive, 2+ QC Media Lot # [id number] Lot# Expiration Date [id number] Urine 10/20/2024 4:00 PM EDT Claudia Antunez MD POINT OF CARE TEST ENTER /EDIT ORDERABLES Final Result * Influenza B (ID NOW Rapid Molecular) (08/23/2024 10:15 AM EDT) [facility] Influenza B Negative Negative, Indeterminate [facility] Swab 08/23/2024 10:1 5 AM EDT us Valdez De La Rosa MD POINT OF CARE TEST ENTER/EDIT OR DERABLES Final Result Performing Organization Address [facility]/ZIP Co de Phone Number [facility] [address] [place] [phone] * Influenza A (ID NOW Rapid Molecular) (08/23/2024 10:15 AM EDT) [facility] Influenza A Negative Negative, Indeterminate [facility] Swab 08/23/2024 10:1 5 AM EDT us Valdez De La Rosa MD POINT OF CARE TEST ENTER/EDIT OR DERABLES Final Result Performing Organization Address [facility]/ZIP Co de Phone Number [facility] [address] [place] [phone] * (ABNORMAL) POCT Rapid COVID Ag (08/23/2024 10:14 AM EDT) [facility] Rapid COVID Ag Positive Swab 08/23/2024 10:1 4 AM EDT us Valdez De La Rosa MD POINT OF CARE TEST ENTER/EDIT OR DERABLES Edited Result - Final * POCT rapid strep A manually resulted (08/23/2024 10:14 AM EDT) [facility] Rapid Strep A Screen Negative Negative, None Detected Swab 08/23/2024 10:1 4 AM EDT us Valdez De La Rosa MD POINT OF CARE TEST ENTER/EDIT OR DERABLES Final Result * (ABNORMAL) Lipid Panel with Reflex to Direct LDL (07/15/2024 10:18 AM EDT) [facility] Triglycerides 97 <150 mg/dL [facility] Comment:Desirable Triglyceri de: less than 150 mg/dLBorderline High Triglyceride 150-199 mg/dLHigh Triglyceride: 200-499 mg/dLVery High Triglyceride: greater than or equal to 5OO mg/dL Cholesterol 188 <200 mg/dL [facility] Comment:Desirable Cholestero l: less than 200 mg/dLBorderline High Cholesterol: 200-239 mg/dLHigh Cholesterol: greater than 239 mg/dL LDL Cholesterol Calculated 121(H) <100 mg/dL [facility] Comment:Desirable LDL: less than 100 mg/dLNear Optimal/Above Optimal LDL: 110- 129 mg/dLBorderline High LDL: 130-159 mg/dLHigh LDL: 160-189 mg/dLVery High LDL: greater than or equal to 190 mg/dL HDL Cholesterol 48 >40 mg/dL [facility] Comment:Desirable HDL: great er than 40 mg/dL Note: This HDL assay may give artificially low results in patients with liver disease. Blood 07/15/2024 10:1 8 AM EDT 07/15/2024 11:40 AM EDT us Claudia Antunez MD LAB BLOOD ORDERABLES Fin al Result [facility] [address] [place] [phone] * Hepatitis Panel, General (07/15/2024 10:18 AM EDT) Hepatitis A IgM Nonreactive Nonreactive [facility] Comment:IgM antibodies to JAIN V not detected; does not exclude earlyacute or recovered HAV infection. ~Hepatitis B Surface Antibody NONREACTIVE Nonreactive [facility] Comment:Nonreactive: < 8.00 mIU/mL Hepatitis B Core Antibody Nonreactive Nonreactive [facility] Hepatitis C Antibody Nonreactive Nonreactive [facility] Comment:Antibodies to HCV no t detected; does not exclude early acuteHCV infection. Hepatitis B Surface Ag Negative Negative [facility] Blood 07/15/2024 10:1 8 AM EDT 07/15/2024 11:40 AM EDT Claudia Antunez MD LAB BLOOD ORDERABLES Fin al Result [facility] [address] [place] [phone] from Last 3 Months or Most Recently Relevant to Health Maintenance Insurance [facility] F[employer] Care Teams Grit Blaster Relationship Specialty Start Date End Date Claudia Antunez MD [address] [place] [phone] PCP - General Internal Medicine 07/15/24
--- OUTSIDE RECORDS SUMMARY | 2024-11-09 17:06 | XMS_ITS | Encounter Summary ---
Author Organization [employer] Address [address] [facility] [address] [place] [address] Care Team Providers Care Campus Recruiting Coordinator Name Role Phone Claudia Antunez MD Primary Care Provider + Encounter Details Date Type Department Care Team ([facility] st Contact Info) Description 08/23/2024 Telephone [facility] [address] [place], [place] [phone] Sahnt Teresa MD [address] [place] [address] Social History Tobacco Use Types Packs/Day Years [...] AM EDT documented as of this encounter Functional Status * Over the past 2 weeks, how often have you been bothered by any of the following problems? Question Answer Date of Assessment Author Patient Health Questionnaire-2 Score 4 09/01/2024 9:49 AM EDT Angelito Tejada LICSW * Little interest or pleasure in doing things Answer Date of Assessment Author More than half the days 09/01/2024 9:49 AM EDT Nupur Hines LICSW * Feeling down, depressed, or hopeless Answer Date of Assessment Author More than half the days 09/01/2024 9:49 AM EDT Nupur Hines LICSW * Trouble falling or staying asleep, or sleeping too much Answer Date of Assessment Author Nearly every day 09/01/2024 9:49 AM EDT Nupur Tejada LICSW * Feeling tired or having little energy Answer Date of Assessment Author Nearly every day 09/01/2024 9:49 AM EDT Nupur Tejada LICSW * Poor appetite or overeating Answer Date of Assessment Author More than half the days 09/01/2024 9:49 AM EDT Nupur Hines LICSW * Feeling bad about yourself - or that you are a failure or have let yourself or your family down Answer Date of Assessment Author Nearly every day 09/01/2024 9:49 AM EDT Nupur Tejada LICSW * Trouble concentrating on things, such as reading the newspaper or watching television Answer Date of Assessment Author More than half the days 09/01/2024 9:49 AM EDT Nupur Hines LICSW * Moving or speaking so slowly that other people could have noticed? Or the opposite - being so fidgety or restless that you have been moving around a lot more than usual. Answer Date of Assessment Author Several days 09/01/2024 9:49 AM EDT Nupur Tejada LICSW * Thoughts that you would be better off or hurting yourself in some way Answer Date of Assessment Author Not at all 09/01/2024 9:49 AM EDT Nupur Tejada LICSW * Patient Health Questionnaire-9 Score Answer Date of Assessment Author 18 09/01/2024 9:49 AM EDT Nupur Tejada LICSW * How difficult have these problems made it for you to do your work, take care of things at home, or get along with other people? Answer Date of Assessment Author Very difficult 09/01/2024 9:49 AM EDT Nupur Tejada LICSW * Over the last 2 weeks, how often have you been bothered by any of the following problems? Question Answer Date of Assessment Author Feeling nervous, anxious, or on edge 2 09/01/2024 9:47 AM EDT Jacinda Tejada LICSW Not being able to stop or control worrying 2 09/01/2024 9:47 AM EDT Jacinda Tejada LICSW Worrying too much about different things 2 09/01/2024 9:47 AM EDT Jacinda Tejada LICSW Trouble relaxing 2 09/01/2024 9:47 AM EDT Nupur Hines LICSW Being so restless that it is hard to sit still 2 09/01/2024 9:47 AM EDT Jacinda Tejada LICSW Becoming easily annoyed or irritable 1 09/01/2024 9:47 AM EDT Jacinda Tejada LICSW Feeling afraid as if something awful might happen 2 09/01/2024 9:47 AM EDT Nupur Tejada LICSW GLEN-7 Total Score 13 09/01/2024 9:47 AM EDT Nupur Tejada LICSW documented as of this encounter Miscellaneous Notes * Telephone Encounter - Haleigh Aneudy Avitia - 08/23/2024 12:56 PM EDT TC from pt seen today at walk-in clinic at 10:40 AM by doctor Name. Pt is requesting a letter for work stating the diagnosis. She would like the letter mailed if possible. Pt also requested a call back to find out the fastest way to receive the letter before tomorrow. Contact pt at [phone] Need japanese interpreter documented in this encounter Plan of Treatment Not on file documented as of this encounter Visit Diagnoses Not on filedocumented in this encounter Additional Health Concerns Assessment Noted Time PHQ-9 Depression Total Score: 18 025 9:00 AM EDT documented as of this encounter Care Teams Campus Recruiting Coordinator Relationship Specialty Start Date End Date Claudia Antunez MD [address] [place] [phone] PCP - General Internal Medicine 07/15/24 documented as of this encounter
--- OUTSIDE RECORDS SUMMARY | 2024-11-09 17:06 | XMS_ITS | Encounter Summary ---
Author Organization [employer] Address [address] [facility] [address] [place] [address] Care Team Providers Care Shear Assembler Name Role Phone Claudia Antunez MD Primary Care Provider + Reason for Visit * Reason Onset Date Comments Lab Orders 11/08/2024 Encounter Details Date Type Department Care Team ([facility] st Contact Info) Description 11/08/2024 Refill [facility] [address] [place], [place] [phone] Claudia Antunez MD [address] [place] [address] test positive Social History Tobacco Use Types Packs/Day Years Used Date Smoking Tobacco: Never Passive Smoke Exposure: Never Smokeless Tobacco: Never Alcohol Use Standard [...] encounter Miscellaneous Notes * Telephone Encounter - Claudia Antunez MD - 11/09/2024 3:58 PM EDT vit rx sent to pharmacy, awaiting POS test result to refer to OB, last one on file last month was NEG * Telephone Encounter - Sarah Sanchez RN - 11/09/2024 9:30 AM EDT TC returned to pt. Pt. Reports + test at home yesterday 11/08/24, and LMP 09/18/24 with h/o irregular cycle. HCG ordered, pt. Is planning to come this pm. Pt. Denies any severe cramping or vaginal bleeding/ spotting. Denies symptoms of early so far. Reports she has discontinued topiramate as prescribed last month. Advised pt. Referral for care would be placed pending results and pt. Does not have a preference of which facility it is sent. Pt. Reports she does not have vitamins at home, rx pended. Pt. Will access HCG results via [facility]. * Telephone Encounter - Ashly Montesinoshoward - 11/08/2024 2:21 PM EDT Tc from pt requesting lab orders to test for . Stated she took 3 at home tests and all were positive Contact pt at [phone] (macedonian) documented in this encounter Plan of Treatment Not on file documented as of this encounter Procedures Procedure Name Priority Date/Time Associated Diagnosis Comments HCG, TOTAL, QN Routine 11/09/2024 2:37 PM EDT test positive documented in this encounter Results * hCG, Total, Quantitative (11/09/2024 2:37 PM EDT) HCG Quantitative 857 mIU/mL [facility] Comment:Weeks post LMP Appro ximate hCG(Last Menstrual Period) Range (mIU/ml)3 - 4 weeks 9 - 1304 - 5 weeks 75 - 2,6005 - 6 weeks 850 - 20,8006 - 7 weeks 4000 - 100,2007 - 12 weeks 11,500 - 289,92111 - 16 weeks 18,300 - 137,47461 - 29 weeks (2nd trimester) 1,400 - 53,88234 - 41 weeks (3rd trimester) 940 - [...] MD LAB BLOOD ORDERABLES Fin al Result [facility] [address] [place] [phone] documented in this encounter Visit Diagnoses Diagnosis test positive examination or test, positive result documented in this encounter Additional Health Concerns Assessment Noted Time PHQ-9 Depression Total Score: 18 025 9:49 AM EDT documented as of this encounter Care Teams Shear Assembler Relationship Specialty Start Date End Date Claudia Antunez MD [address] [place] [address] PCP - General Internal Medicine 07/15/24 documented as of this encounter
--- OUTSIDE RECORDS SUMMARY | 2024-11-09 17:06 | XMS_ITS | Clinical Summary ---
Author Organization [address] [place] [address] [place] [id number] Phone Care Team Providers Care District Traffic Chief Name Role Phone SheelaAmna TAJ Primary Care Provider [phone] Allergies Active Allergy Reactions Criticality Noted Date [...] of 3 - 19+ 3-dose series) 06/06/2006 Cholesterol Screening (Lipid Panel) 01/16/2024 HIV Screening 01/16/2024 Hepatitis C Screening 01/16/2024 Social Influencers of Health Screening 01/16/2024 Depression Screening 03/03/2024 COVID-19 Vaccine ( - 2023-2 5 season) 2024 Influenza Vaccine (#1) 2024 Cervical Cancer Screening: [...] MOLECULAR DIAGNOSTICS METHOD 02/04/2024 4:38 AM EST [facility] Brushing/Spatula Cervix uteri structure / Unknown 01/27/2024 8:11 AM EST 02/03/2024 10:10 AM EST Amna Coker NP LAB MOLECULAR DIAGNOSTICS ORDERA BLES Final Result [facility] [address] [place] [address], [place] [phone] from Last 3 Months or Most Recently Relevant to Health Maintenance [place] [address] [address] Care Teams District Traffic Chief Relationship Specialty Start Date End Date Amna Coker NP [facility] [address] [place] [address] PCP - General Obstetrics and Gynecology 03/02/24
== END 2024-11-09 14:34 | disposition home or self-care (01) ==
LOC: HO.HHCL 14:33
PROVIDERS: PCP Internal Medicine; Visit Provider Internal Medicine
DX: Z32.01 Encounter for pregnancy test, result positive (principal)
CPT/HCPCS: 36415; 84702